=== PATIENT | male | born 1975 | race Caucasian/White ===

== ENCOUNTER 2016-06-06 10:29 | Emergency (ER) | payer SELFPAY ==
[~2016-06-06] VITALS: Ht 170.2 cm; Wt 77.1 kg
[2016-06-06] MEDS ORDERED: TETRACAINE HCL/PF 0.5% UD 2 ML BOTTLE ONE (10:41)
[2016-06-06] MEDS: TETRACAINE HCL/PF 0.5% UD 2 ML BOTTLE LEFTEYE ONE (10:48)
[2016-06-06 10:54] VITALS: BP 156/82
== END 2016-06-06 11:02 | disposition home or self-care (01) ==
LOC: ER 10:32
DX: T15.02XA Foreign body in cornea, left eye, initial encounter (principal); X58.XXXA Exposure to other specified factors, initial encounter; Y93.89 Activity, other specified; Y92.89 Other specified places as the place of occurrence of the external cause; Y99.0 Civilian activity done for income or pay
CPT/HCPCS: A4606; Z7610